=== PATIENT | female | born 1935 | race Caucasian/White ===

== ENCOUNTER 2016-12-07 14:12 | Outpatient (CLI) | payer OTHER | END 2016-12-07 20:35 | disposition home or self-care (01) | LOC: SMA 14:12 | PROVIDERS: ATTEND Internal Medicine | DX: R92.2 Inconclusive mammogram (principal); Z85.3 Personal history of malignant neoplasm of breast | CPT/HCPCS: G0204 ==

== ENCOUNTER 2016-12-28 13:17 | Outpatient (CLI) | payer OTHER | END 2016-12-28 18:37 | disposition home or self-care (01) | LOC: SMA 13:17 | PROVIDERS: ATTEND Internal Medicine | DX: N63.20 Unspecified lump in the left breast, unspecified quadrant (principal) | CPT/HCPCS: 76642 ==